=== PATIENT | male | born 1995 | race Caucasian/White ===

== ENCOUNTER 2017-11-04 16:20 | Emergency (ER) | payer OTHER ==
[~2017-11-04] VITALS: Ht 167.6 cm; Wt 54.4 kg
[2017-11-04 16:25] VITALS: BP_SYST 121
[2017-11-04] MEDS ORDERED: IBUPROFEN 800 MG TABLET PO ONE (17:30)
[2017-11-04] MEDS ORDERED: ACETAMINOPHEN 500 MG TABLET PO ONE (17:30)
[2017-11-04 19:07] VITALS: BP_SYST 118
== END 2017-11-04 19:07 | disposition home or self-care (01) ==
LOC: SED 16:20
DX: S06.0X9A Concussion with loss of consciousness of unspecified duration, initial encounter (principal); S39.012A Strain of muscle, fascia and tendon of lower back, initial encounter; S40.011A Contusion of right shoulder, initial encounter; S80.01XA Contusion of right knee, initial encounter; S70.11XA Contusion of right thigh, initial encounter; V49.40XA Driver injured in collision with unspecified motor vehicles in traffic accident, initial encounter; Y93.89 Activity, other specified; Y92.410 Unspecified street and highway as the place of occurrence of the external cause; Y99.8 Other external cause status
CPT/HCPCS: 70450-TC; 71045; 72100-TC; 73030; 73552; 73560-TC; 99284